=== PATIENT | female | born 1955 | race Caucasian/White ===

== ENCOUNTER 2024-01-11 07:00 | Outpatient (NON) | payer MEDICARE, SELFPAY | END 2024-01-11 07:01 | disposition home or self-care (01) | PROVIDERS: Visit Provider Surgery Plastic and Reconstructive Surgery | DX: D16.4 Benign neoplasm of bones of skull and face (principal) | CPT/HCPCS: 88305 ==

== ENCOUNTER 2025-07-05 00:23 | Day surgery (SDC) | payer MEDICARE, SELFPAY ==
--- NOTE | 2025-06-27 15:05 | PC.NURSE ---
[facility] has started construction of its new state of the art ER which will open Spring 2026. With this, we anticipate parking may be a challenge for some our surgical patients and families. Parking spaces are limited but are available for all Surgical, obstetrics, and ER patients sharing this lot. If you arrive and find you are having a hard time finding a parking space, please note that we understand the challenges, please drive around the hospital and park near Hospital Entrance 1. When you enter this entrance, you can ask a volunteer to direct or take you back to the surgical waiting area to check in. We appreciate everyone?s understanding of these expected challenges while we build for your future. Report to the Outpatient Waiting Room, entrance under the green pavilion located off [address], at time _6 AM on date _07/05/25 . Planned Procedure Time: __7:30 AM .? Time changes happen often and if your time is changed the preop area will call you the afternoon before. - You and your visitor will be asked to self-screen and do not enter if you have any COVID symptoms. Please call surgeon if you need to reschedule. - A mask is optional within the hospital at this time. Patients may have clear liquids (water, carbonated beverages, clear teas, apple juice) until 3 hours prior to surgery( 4:30 AM) with a maximum of 20 ounces. - No food from midnight until time of surgery and no smoking, or chewing tobacco (or any form of nicotine). No chewing gum, candy or mints. - Take only the following medications with a SIP of water on the morning of surgery: NONE DO NOT STOP ANY OF YOUR OTHER PRESCRIPTION MEDICATIONS PRIOR TO SURGERY EXCEPT THE FOLLOWING Hold all vitamins and supplements for 3 days per anesthesiologist.LAST DOSE 07/01/25 Medications to discontinue per physician ____ASPIRIN HOLD 7 DAYS PRE OP PER DR PAYTON Date to take last dose_06/27/25 Please no make-up, nail czech, hairspray, perfume, deodorant, or body powder the day of surgery.? No jewelry (including any body piercings) or valuables the day of surgery, leave them at home.? Please take a shower or bath the night before, or the morning of, surgery with an antibacterial soap.? Wear comfortable, loose fitting clothing.? Children are encouraged to wear pajamas. - Jewelry must be removed prior to entering the operating room.? Rings and piercings that are not removed may be cut off. - The hospital will not accept responsibility for valuables.? - Please leave all valuables, including medications, at home the day of surgery. If you are going home after surgery, a licensed tour driver must drive you home.? - NO public transportation without another adult if you receive anesthesia. - We recommend that an adult stay with you for 24 hours following discharge. - We also recommend that you do not drive, make important decision, drink alcoholic beverages, or take any drugs that were not prescribed by your health care provider for at least 24 hours after your discharge time. For Pediatric surgeries, we recommend two adults accompany the child home. Follow any additional instructions given to you from your surgeon. Telephone instructions given to __PATIENT and asked if any additional questions and then verbalized understanding. Patient advised to call surgeon office or pre surgery nurse liaison [phone] if any additional questions.
[2025-06-27 15:21] VITALS: BMI 30.9
--- NOTE | 2025-06-30 04:41 | PM.IMHP ---
H&P: HPI History of Present Illness Date/Time: 06/30/25 04:41 Chief Complaint: surgery Narrative: ISD Review of Systems Review of Systems: All systems reviewed & are unremarkable except as noted in HPI and below PMFSH Past Medical History Medical History Overweight with body mass index (BMI) of 29 to 29.9 in adult High cholesterol GERD (gastroesophageal reflux disease) Hypertension PAD (peripheral artery disease) Surgical History Surgical History History of ovarian cystectomy History of cholecystectomy History of hip replacement History of carpal tunnel release of both wrists History of tonsillectomy and adenoidectomy Family History Family History Father Diabetes mellitus Mother Hypertension High cholesterol Social History Social History Smoking packs per day: 1 Smoking cigarettes per day: 20.0 Years smoked: 15 Smoking pack-years: 15.00 Smoking status: Former smoker Tobacco type: cigarettes Smoking end date: 09/05/94 Alcohol intake: never Substance use: never Living arrangements: with family Spiritual care concerns: No Meds Home Medications and Allergies Home Medications ?Medication ?Instructions ?Recorded ?Confirmed ?Type aspirin 81 mg tablet,delayed 81 mg PO DAILY 01/05/21 06/27/25 History release (Adult Aspirin Regimen) calcium carbonate (Tums) 200 mg PO BID 01/05/21 06/27/25 History cetirizine 10 mg capsule (All Day 10 mg PO DAILY PRN allergy symptoms 01/05/21 06/27/25 History Allergy (cetirizine)) cholecalciferol (vitamin D3) 10 10 mcg PO DAILY 01/05/21 06/27/25 History mcg (400 unit) capsule coenzyme Q10 100 mg capsule (Co 100 mg PO DAILY 01/05/21 06/27/25 History Q-10) fluticasone propionate 50 1 spray intranasal DAILY 01/05/21 06/27/25 History mcg/actuation nasal spray,suspension (Allergy Relief (fluticasone)) lansoprazole 30 mg capsule,delayed 30 mg PO DAILY 01/05/21 06/27/25 History release lorazepam 0.5 mg tablet 0.5 mg PO DAILY 01/05/21 06/27/25 History magnesium 250 mg tablet 250 mg PO DAILY 01/05/21 06/27/25 History metoprolol succinate 50 mg 50 mg PO HS 01/05/21 06/27/25 History tablet,extended release 24 hr multivitamin 1 tablet PO DAILY 01/05/21 06/27/25 History polyethylene glycol 3350 17 17 g PO PRN PRN constipation 01/05/21 06/27/25 History gram/dose oral powder (Miralax) rosuvastatin 10 mg tablet 10 mg PO DAILY 01/05/21 06/27/25 History alendronate 70 mg tablet 70 mg PO WEEKLY 06/27/25 06/27/25 History montelukast 10 mg tablet 10 mg PO DAILY 06/27/25 06/27/25 History Allergies Allergy/AdvReac Type Severity Reaction Status Date / Time Sulfa (Sulfonamide Allergy Hives Verified 06/27/25 15:03 Antibiotics) tramadol Allergy Dizziness Verified 06/27/25 15:03 Exam Narrative: fixed urethra Assessment and Plan Assessment and plan (1) Intrinsic sphincter deficiency (ISD): Code(s): N36.42 - Intrinsic sphincter deficiency (ISD) Status: Acute Assessment and Plan: cysto/bulking agent
--- OUTSIDE RECORDS SUMMARY | 2025-07-05 00:27 | XMS_ITS | Clinical Summary ---
Author Organization [facility] Address [facility] [place] [address] Care Team Providers Care Meteorology Instructor Name Role Phone Unavailable Primary Care Provider Unavailabl e Social History Tobacco Use Types Packs/Day Years Used Date Smoking Tobacco: Never Assessed Comments Unknown Sex and Gender Information Value Date Recorded Sex Assigned at Not on file Legal Sex Female 5:47 PM CDT Gender Identity Not on file Sexual Orientation Not on file Plan of Treatment Health Maintenance Due Date Last Done Comments Colorectal Cancer Screening Colonoscopy (10 Years) 1957 Hepatitis C 1975 DTaP, Tdap and Td Vaccines ( 1 - Tdap) 1976 Mammogram Screening 1997 Pneumococcal Vaccine: 50+ Ye ars (1 of 1 - PCV) 2007 Zoster Vaccines (1 of 2) 2007 Dexa Scan (General) 2022 COVID-19 Vaccine ( - 2024-2 6 season) 2025 Influenza Adult (#1) 2025 RSV Immunization or 60+ Years (1 - 1-dose 75+ series) 2032 Hepatitis A Vaccines Aged Out No long er eligible based on patient's age to complete this topic Meningococcal B Vaccine Aged Out No l onger eligible based on patient's age to complete this topic Meningococcal Vaccine Aged Out No ceferino dipak eligible based on patient's age to complete this topic RSV Immunizations Under 20 Months Aged Out No longer eligible based on patient's age to complete this topic
--- OUTSIDE RECORDS SUMMARY | 2025-07-05 00:27 | XMS_ITS | Clinical Summary ---
Author Organization [facility] Address [address] [facility] [place] [address] Phone Care Team Providers Care Associate Financial Analyst Name Role Phone Chuy Veras MD Primary Care Provider [phone] Allergies Active Allergy Reactions Criticality Noted Date Comments Codeine Sulfate Hives,Rash Medications Azelastine HCl (ASTEPRO) 0.15 % NA SOLN 2 Puffs by Nasal route 2 times daily. Each nostril Active lansoprazole 30 MG PO CAP-DEL-REL Take by mouth. Active Cholecalciferol ([employer] VIT D 5000 HIGH-POTENCY) 5000 UNIT PO CAPS Take by mouth daily. Active rosuvastatin (CRESTOR) 5 MG PO TABS Take by mouth. Active fexofenadine 180 MG PO TABS Take by mouth. Active LORazepam 0.5 MG PO TABS Take by mouth. Active FLUTICASONE PROPIONATE, NASAL, NA 16 g by Nasal route. Active Aspirin 81 MG PO TABS Take by mouth. Active metoprolol Succinate (TOPROL XL) 50 MG PO TAB-SR-24HR Take by mouth. 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 Obstructive sleep apnea Social History Tobacco Use Types Packs/Day Years Used Date Smoking Tobacco: Former Cigarettes 1 15 Alcohol Use Standard Drinks/Week Comments Yes 0 (1 standard drink = 0.6 oz pur e alcohol) rare Comments No Sex and Gender Information Value Date Recorded Sex Assigned at Not on file Legal Sex Female 9:01 PM CDT Gender Identity Not on file Sexual Orientation Not on file Occupation Industry Job Start Date Job End Date teacher Not on file Not on file Not on file Last Filed Vital Signs Vital Sign Reading Time Taken Comments Blood Pressure 126/78 09/20/2016 1:27 PM ENERGY ADVISOR Pulse 68 09/20/2016 1:27 PM ENERGY ADVISOR Temperature - - Respiratory Rate 16 09/20/2016 1:27 PM ENERGY ADVISOR Oxygen Saturation - - Inhaled Oxygen Concentration - - Weight 71.2 kg (157 lb) 09/20/2016 1:27 PM ENERGY ADVISOR Height 160 cm (5' 3) 09/20/2016 1:27 PM ENERGY ADVISOR Body Mass Index 27.81 09/20/2016 1:27 PM ENERGY ADVISOR Plan of Treatment Health Maintenance Due Date Last Done Comments Hepatitis C Virus (HCV) Screening 1955 TdaP Immunization 1957 Cologuard 2002 Colonoscopy 2002 Colorectal Cancer Screening 2002 Immunochemical Fecal Occult Blood 2002 Pneumococcal Immunization (50+ years) (1 of 1 - PCV) 2007 Zoster Immunization (1 of 2) 2007 Influenza Immunization (#1) 05/06/202507/06, 07/17/2017, 07/22/2016, Additional history exists SARS-COV-2 Immunization (2024- season) 2025 08/17/2021, 11/11/2020, 10/14/2020 Respiratory Syncytial Virus (RSV) Immunization (Adult) (1 - 1-dose 75+ series) 2032 DEXA Bone Density Discontinued 04/05/2016 Mammogram Discontinued 06/15/2016 Hepatitis B Immunization Aged Out No longer eligible based on patient's age to complete this topic Human Papillomavirus (HPV) Immunization Aged Out No longer eligible based on patient's age to complete this topic Meningococcal Immunization (ACWY) Aged Out No longer eligible based on patient's age to complete this topic Rotavirus Immunization Aged Out No lo nger eligible based on patient's age to complete this topic Procedures Procedure Name Priority Date/Time Associated Diagnosis Comments [facility] SCREENING BILATERAL DIGITAL W CAD Routine 06/15/2016 3:33 PM CDT Encounter for mammogram to establish baseline mammogram ALEXANDRA BONE DENSITOMETRY AXIAL SKELETON Routine 04/05/2016 1:45 PM CDT Other specified disorders of bone density and structure, unspecified site from Last 3 Months or Most Recently Relevant to Health Maintenance Results * [facility] SCREENING BILATERAL DIGITAL W CAD (06/15/2016 3:33 PM CDT) Anatomical Region Laterality Modality breast Bilateral Mammography 06/15/2016 3:10 PM CDT Narrative 06/16/2016 7:09 AM CDT - [facility] SCREENING BILATERAL DIGITAL W CAD BILATERAL DIGITAL SCREENING MAMMOGRAM WITH CAD WITH MEDIOLATERAL OBLIQUE CRANIOCAUDAL: 06/15/2016 The study was acquired using digital technology and interpreted from soft copy. Current study was also evaluated with ICAD version 7.2. CLINICAL: Routine screening. Patient has no complaints. No personal history of cancer. No family history of breast cancer. COMPARISONS: Comparison is made to exams dated: 06/11/2015 and 05/07/2014 [facility]. BREAST TISSUE:The tissue of both breasts is predominantly fatty. FINDINGS: No significant masses, calcifications, or other findings are seen in either breast. There has been no significant interval change. IMPRESSION: BI-RAD 1 NEGATIVE There is no mammographic evidence of malignancy. A 1 year screening mammogram is recommended. The patient has been or will be contacted. The patient will be entered into a reminder system with a target due date of 1 year for her next screening exam. Electronically signed by: Jun scott/malachi:06/15/2016 18:55:51 Inspector And Sorter: Saloni Rose (R), [facility] letter sent: Normal Exam Reading location: [facility] BI-RADS: 1 Negative Procedure Note Jun Mcmullen MD - 06/16/2016 - [facility] SCREENING BILATERAL DIGITAL W CAD BILATERAL DIGITAL SCREENING MAMMOGRAM WITH CAD WITH MEDIOLATERAL OBLIQUE CRANIOCAUDAL: 06/15/2016 The study was acquired using digital technology and interpreted from soft copy. Current study was also evaluated with ICAD version 7.2. CLINICAL: Routine screening. Patient has no complaints. No personal history of cancer. No family history of breast cancer. COMPARISONS: Comparison is made to exams dated: 06/11/2015 and 05/07/2014 [facility]. BREAST TISSUE:The tissue of both breasts is predominantly fatty. FINDINGS: No significant masses, calcifications, or other findings are seen in either breast. There has been no significant interval change. IMPRESSION: BI-RAD 1 NEGATIVE There is no mammographic evidence of malignancy. A 1 year screening mammogram is recommended. The patient has been or will be contacted. The patient will be entered into a reminder system with a target due date of 1 year for her next screening exam. Electronically signed by: Jun scott/malachi:06/15/2016 18:55:51 Inspector And Sorter: Saloni Rose (Tabatha), [facility] letter sent: Normal Exam Reading location: [facility] BI-RADS: 1 Negative Zahira Hercules APRN, [facility] IM MAMMO ORDERABLES Fin al Result * [facility] BONE DENSITOMETRY AXIAL SKELETON (04/05/2016 1:45 PM CDT) Anatomical Region Laterality Modality BODY N/A Other 04/05/2016 2:06 PM CDT Impressions 04/05/2016 2:09 PM CDT IMPRESSION: Low bone mass Additional Clinical Information: Bone mineral density: Normal (T-score above or = -1.0) Low bone mass (T-score between -1.0 and -2.5) replaces the previously used term osteopenia Osteoporosis (T-score = or below -2.5) Medical evaluation for secondary causes of low bone mineral density may be appropriate. FRAX is a World Health Organization validated fracture risk assessment tool that calculates a person's 10 year probability of a major osteoporosis related fracture and hip fracture. According to the National Osteoporosis Foundation guidelines, postmenopausal women and men age 50 or older with low bone mass and a 10 year probability of a major osteoporosis related fracture = or greater than 20% or a 10 year probability of a hip fracture = or greater than 3% should be considered for treatment. For further information, including treatment recommendations, please refer to the 2013 ISCD Official Positions (http://www.iscd.org) and the NOF's Clinician's Guide to Prevention and Treatment of Osteoporosis (http://www.nof.org/professionals/clinical-guidelines) Narrative 04/05/2016 2:09 PM CDT EXAMINATION: DXA Bone Density HISTORY: 60 year old postmenopausal female with given history of postmenopausal. Current Height: 63 inches Maximum Height: 63 inches Weight: 167 pounds RISK FACTORS: Parental hip fracture, proton pump inhibitor usage greater than 6 months COMPARISON(S): None LIGHT BULB ASSEMBLER/MODEL: Superpedestrian (S/N [id number]) FINDINGS: AP lumbar spine L1-L4 Total BMD is 1.06 g/rv4V-pryvi is -1.1 Left Hip Total BMD is 0.84 g/ec4Y-hdlfo is -1.3 Neck BMD is 0.79 g/tn6U-giinh is -1.8 Fracture risk assessment (FRAX): 10 year risk for a major osteoporotic fracture is 16.3 % 10 year risk for a hip fracture is 0.9 % The FRAX tool has not been validated in patients currently or previously treated with pharmacotherapy for osteoporosis. In such patients, clinical judgement must be exercised in interpreting FRAX scores as the fracture risk may be overestimated. THIS IS AN ELECTRONICALLY VERIFIED REPORT 04/05/2016 2:06 PM: Norm Smith M.D. Radiologist AR:dayo SHAWN Procedure Note Hao Silveira MD - 04/05/2016 EXAMINATION: DXA Bone Density HISTORY: 60 year old postmenopausal female with given history of postmenopausal. Current Height: 63 inches Maximum Height: 63 inches Weight: 167 pounds RISK FACTORS: Parental hip fracture, proton pump inhibitor usage greater than 6 months COMPARISON(S): None LIGHT BULB ASSEMBLER/MODEL: Superpedestrian (S/N [id number]) FINDINGS: AP lumbar spine L1-L4 Total BMD is 1.06 g/yr6U-xjjmu is -1.1 Left Hip Total BMD is 0.84 g/by4C-dkehw is -1.3 Neck BMD is 0.79 g/vb0X-cbqnt is -1.8 Fracture risk assessment (FRAX): 10 year risk for a major osteoporotic fracture is 16.3 % 10 year risk for a hip fracture is 0.9 % The FRAX tool has not been validated in patients currently or previously treated with pharmacotherapy for osteoporosis. In such patients, clinical judgement must be exercised in interpreting FRAX scores as the fracture risk may be overestimated. THIS IS AN ELECTRONICALLY VERIFIED REPORT 04/05/2016 2:06 PM: Hao Silveira M.D. Hao Silveira M.D. Radiologist AR:dayo SHAWN IMPRESSION: Low bone mass Additional Clinical Information: Bone mineral density: Normal (T-score above or = -1.0) Low bone mass (T-score between -1.0 and -2.5) replaces the previously used term osteopenia Osteoporosis (T-score = or below -2.5) Medical evaluation for secondary causes of low bone mineral density may be appropriate. FRAX is a World Health Organization validated fracture risk assessment tool that calculates a person's 10 year probability of a major osteoporosis related fracture and hip fracture. According to the National Osteoporosis Foundation guidelines, postmenopausal women and men age 50 or older with low bone mass and a 10 year probability of a major osteoporosis related fracture = or greater than 20% or a 10 year probability of a hip fracture = or greater than 3% should be considered for treatment. For further information, including treatment recommendations, please refer to the 2013 ISCD Official Positions (http://www.iscd.org) and the NOF's Clinician's Guide to Prevention and Treatment of Osteoporosis (http://www.nof.org/professionals/clinical-guidelines) us Zahira Hercules APRN, [facility] IMG DEXA ORDERABLES Irish l Result from Last 3 Months or Most Recently Relevant to Health Maintenance Insurance [facility] Care Teams Associate Financial Analyst Relationship Specialty Start Date End Date Chuy Veras MD [address] [place] [id number] PCP - General Family Medicine 02/15/19
--- OUTSIDE RECORDS SUMMARY | 2025-07-05 00:27 | XMS_ITS | Clinical Summary ---
Author Organization [facility] Address [address] [place] [address] Phone Care Team Providers Care Supervisor Mending Name Role Phone Chuy Veras MD Primary Care Provider [phone] Allergies Active Allergy Reactions Criticality Noted Date Comments Sulfa (Sulfonamide Antibiotics) Hives High 0812/2008 Tramadol Dizziness Low 02/03/2016 Medications lansoprazole (PREVACID) 30 mg Capsule, Delayed Release(E.C.) Take 30 mg by mouth daily. Active magnesium oxide 500 mg Tablet Take by mouth. Active calcium as carbonate (TUMS) 500 mg (200 mg elemental) Tablet, Chewable 500 mg. 09/01/2017 Active LORazepam (ATIVAN) 0.5 mg tablet 0.5 mg late in the day. 12/26/2019 Active multivitamin (DAILY-DARIN) tablet Take 1 Tablet by mouth daily. Active metoprolol succinate (TOPROL XL) 25 mg Extended Release 24 hour tablet Take 50 mg by mouth daily. Active coenzyme Q10 100 mg Capsule Take 100 mg by mouth daily. Active docusate sodium (COLACE) 100 mg capsule Take 100 mg by mouth 2 times daily. Active aspirin (ECOTRIN EC) 81 mg Tablet, Delayed Release (E.C.) Take 81 mg by mouth daily. Active rosuvastatin (CRESTOR) 10 mg tablet Take 10 mg by mouth daily. Active cholecalciferol , vitamin D3, 5,000 unit Take 800 Units by mouth daily. Active polyethylene glycol 3350 (MIRALAX) 17 gram/dose Powder Take 17 Grams by mouth daily. Dissolve in 8 ounces of fluid and drink entire liquid Active montelukast (SINGULAIR) 10 mg tablet Take 10 mg by mouth daily. Active hyoscyamine 0.[address] 1 Tablet (0.125 mg) under tongue every 4 hours as needed for Spasm. 60 Tablet 3 12/28/2024 Active Active Problems Problem Noted Date Diagnosed Date Biliary colic 07/29/2020 Encounters Date Type Department Care Team Description 07/03/2025 External Device Data [facility] ABSTRACTION Provider, Abstract 06/26/2025 External Device Data [facility] ABSTRACTION Provider, Abstract 06/25/2025 External Device Data [facility] ABSTRACTION Provider, Abstract 05/21/2025 External Device Data [facility] ABSTRACTION Provider, Abstract 05/14/2025 External Device Data [facility] ABSTRACTION Provider, Abstract 04/10/2025 External Device Data [facility] ABSTRACTION Provider, Abstract 04/09/2025 External Device Data [facility] ABSTRACTION Provider, Abstract 04/09/2025 External Device Data [facility] ABSTRACTION Provider, Abstract from Last 3 Months Family History Medical History Relation Name Comments Colon Cancer Neg Hx Social History Tobacco Use Types Packs/Day Years Used Date Smoking Tobacco: Former Cigarettes 1 18 1 978 - 1995 Smokeless Tobacco: Never Tobacco Cessation:Counseling Given: Not Answered Alcohol Use Standard Drinks/Week Comments Yes 0 (1 standard drink = 0.6 oz pur e alcohol) rarely Feeling Safe Answer Date Recorded Are you in a relationship wi th someone who hurts you emotionally and/or physically? No 06/12/2024 Comments No Sex and Gender Information Value Date Recorded Sex Assigned at Female 06/03/2024 3:19 PM CDT Legal Sex Female 9:31 AM CDT Gender Identity Female 06/03/2024 3:19 PM CDT Sexual Orientation Straight 06/03/2024 3: 19 PM CDT Last Filed Vital Signs Vital Sign Reading Time Taken Comments Blood Pressure 133/85 11/16/2024 10:00 AM CDT Pulse 78 11/16/2024 10:00 AM CDT Temperature 36.2 C (97.1 F) 06/12/2024 1:56 PM CDT Respiratory Rate 18 06/12/2024 2:20 PM CDT Oxygen Saturation 100% 06/12/2024 2:20 PM CDT Inhaled Oxygen Concentration - - Weight 76.2 kg (168 lb) 11/16/2024 10:00 AM CDT Height 157.5 cm (5' 2) 11/16/2024 10:00 AM CDT Body Mass Index 30.73 11/16/2024 10:00 AM CDT Plan of Treatment Health Maintenance Due Date Last Done Comments Pre-Diabetes and Diabetes Screening 1955 FIT-DNA Q 3 years 2002 FIT/FOBT Q 1 year 2002 Flex Sig/CT Colonography Q 5 years 2002 PNEUMOCOCCAL VACCINE 50+ YEA RS (1 of 1 - PCV) 2007 ZOSTER VACCINE (1 of 2) 2007 BREAST CANCER SCREENING 06/15/2017 06/15/2016, 06/15 OSTEOPOROSIS SCREENING 2022 04/05/2016, 2015 INFLUENZA VACCINE (#1) 2025 , 07/20/2018, 07/18/2017, Additional history exists COLORECTAL SCREENING 06/12/2027 06/12/2024, 06/12/2024, 07/02/2020, Additional history exists Colorectal Cancer Screening 06/12/2027 DTAP/TDAP/TD VACCINES (2 - T d or Tdap) 12/30/2029 12/31/2019 RSV VACCINE (60+ or ) (1 - 1-dose 75+ series) 2032 Medical Devices Implanted Type Area Computational Theory Scientist Device Identifier Shelf Expiration Date Model / Serial / Lot Endo Clip Ii 10mm [id number] - [id number] Implanted:Qty: 1 on 07/29/2020 by Mario Alba DO at [facility] Clip N/A: Abdomen [employer] - COVIDIEN [id number] 06/04/2025 [id number] / / [id number] Hip Description:left total hip a rthroplasty Procedures Procedure Name Priority Date/Time Associated Diagnosis Comments COLONOSCOPY REPORT 06/12/2024 1: 59 PM CDT from Last 3 Months or Most Recently Relevant to Health Maintenance Results * COLONOSCOPY REPORT (06/12/2024 1:59 PM CDT) Narrative Procedure Note Krista Lara MD - 06/12/2024 1:59 PM CDT [facility] Endoscopy Patient Name: Jeimy Leal Procedure Date: 06/12/2024 Date of : 1955 Attending MD: Krista Lara MD, Procedure: Colonoscopy Indications: Surveillance: Personal history of adenomatous polyps on last colonoscopy > 3 years ago Providers: Krista Lara MD Referring MD: Chuy Veras MD Medicines: Monitored Anesthesia Care Complications: No immediate complications. Procedure: Informed consent was obtained for the procedure, including moderate sedation after risks were discussed. Based on the pre-procedure assessment, including review of the patient's medical history, medications, allergies, and review of systems, the patient was deemed to be an appropriate candidate for sedation. A timeout was performed. Continuous ECG monitoring, pulse oximetry, blood pressure monitoring, and direct observation were performed. The Colonoscope was introduced through the anus and advanced to the cecum, identified by appendiceal orifice and ileocecal valve. The colonoscopy was performed without difficulty. The patient tolerated the procedure well. The quality of the bowel preparation was good. The ileocecal valve, appendiceal orifice, and rectum were photographed. Estimated Blood Loss: Estimated blood loss was minimal. Findings: Two sessile polyps were found in the ascending colon. The polyps were 2 to 3 mm in size. These polyps were removed with a jumbo cold forceps. Resection and retrieval were complete. Two sessile polyps were found in the descending colon and transverse colon. The polyps were 5 to 6 mm in size. These polyps were removed with a cold snare. Resection and retrieval were complete. Four sessile polyps were found in the descending colon and transverse colon. The polyps were 2 to 3 mm in size. These polyps were removed with a jumbo cold forceps. Resection and retrieval were complete. Non-bleeding external hemorrhoids were found during retroflexion. Impression: - Two 2 to 3 mm polyps in the ascending colon, removed with a jumbo cold forceps. Resected and retrieved. - Two 5 to 6 mm polyps in the descending colon and in the transverse colon, removed with a cold snare. Resected and retrieved. - Four 2 to 3 mm polyps in the descending colon and in the transverse colon, removed with a jumbo cold forceps. Resected and retrieved. - Non-bleeding external hemorrhoids. Recommendation: - Patient has a contact number available for emergencies. The signs and symptoms of potential delayed complications were discussed with the patient. Return to normal activities tomorrow. Written discharge instructions were provided to the patient. - Resume previous diet. - Continue present medications. - Await pathology results. - Repeat colonoscopy is recommended for surveillance. The colonoscopy date will be determined after pathology results from today's exam become available for review. - Return to referring physician as previously scheduled. Krista Lara MD 06/12/2024 1:59:29 PM This report has been signed electronically. Number of Addenda: [address]; [place] [address] Krista Lara MD GI PROCEDURE ORDERABLES Final Result from Last 3 Months or Most Recently Relevant to Health Maintenance Insurance MEDICARE PART A AND B [facility] RX [facility] Advance Directives For more information, please contact: [phone] * Full Code (Latest Code Status on File) Date Activated Date Inactivated Comments 06/12/2024 12:26 PM 06/12/2024 4:44 PM * Full Code Date Activated Date Inactivated Comments 07/29/2020 8:24 AM 07/29/2020 5:50 PM * Full Code Date Activated Date Inactivated Comments 07/02/2020 9:22 AM 07/02/2020 1:38 PM Care Teams Supervisor Mending Relationship Specialty Start Date End Date Chuy Veras MD [address] [place] [id number] PCP - General Family Practice 06/04/20
--- OUTSIDE RECORDS SUMMARY | 2025-07-05 00:27 | XMS_ITS | Encounter Summary ---
Author Organization [facility] Address [address] [place] [address] Care Team Providers Care Solar Installation Foreman Name Role Phone Chuy Veras MD Primary Care Provider Encounter Details Date Type Department Care Team (Late st Contact Info) Description 07/03/2025 External Device Data [facility] ABSTRACTION Provider, Abstract NO ADDRESS ON FILE Social History Tobacco Use Types Packs/Day Years Used Date Smoking Tobacco: Former Cigarettes 1 18 1 978 - 1995 Smokeless Tobacco: Never Alcohol Use Standard Drinks/Week Comments Yes 0 [...] Orientation Straight 06/03/2024 3: 19 PM CDT documented as of this encounter Plan of Treatment Not on file documented as of this encounter Visit Diagnoses Not on filedocumented in this encounter Care Teams Solar Installation Foreman Relationship Specialty Start Date End Date Chuy Veras MD [address] [place] [id number] PCP - General Family Practice 06/04/20 documented as of this encounter
--- OUTSIDE RECORDS SUMMARY | 2025-07-05 00:27 | XMS_ITS | Clinical Summary ---
Author Organization [facility] Address [address] [place] [address] Care Team Providers Care Career Services Assistant Name Role Phone Chuy Veras MD Primary Care Provider Allergies Active Allergy Reactions Criticality Noted Date Comments Codeine Sulfate Hives,Rash Medium Sulfa (Sulfonamide Antibiotics) Hives High Reaction: Hives, Sulfanilamide Hives Medium Tramadol Dizziness Low 02/03/2016 Tramadol-Acetaminophen Dizziness Low Medications psyllium (METAMUCIL SUGAR FREE) powder 0 0 11/20/19 15 Active LORazepam (ATIVAN) 0.5 mg tablet take 1 tablet (0.5MG) by ORAL route 2 times every day as needed 0 03/29/20 11 Active metoprolol XL (TOPROL XL) 50 mg 24 hr tablet take 1 tablet (50MG) by oral route every day 0 03/29/20 11 Active calcium citrate-vitamin D2 250 mg-2.5 mcg (100 unit) per tablet Take 1 tablet by mouth 2 (two) times a day Active multivitamin capsule Take 1 capsule by mouth daily Active magnesium gluconate (MAGONATE) 27.5 mg magne- sium (500 mg) tabletIndications: hypomagnesemia Take 1 tablet (500 mg total) by mouth 2 (two) times a day Active coenzyme Q10 100 mg capsule Take 1 capsule (100 mg total) by mouth daily Active famotidine (PEPCID) 20 mg tablet Take 1 tablet (20 mg total) by mouth 2 (two) times a day 10/26/19 23 Active montelukast (SINGULAIR) 10 mg tablet Take 1 tablet (10 mg total) by mouth nightly Active rosuvastatin (CRESTOR) 10 mg tablet Take 1 tablet (10 mg total) by mouth daily Active TURMERIC ROOT EXTRACT ORAL Take by mouth daily Chewable Active HYDROcodone-acetam inophen (NORCO) 5-325 mg per tabletIndications: Pain Take 1 tablet by mouth every 6 (six) hours as needed for pain for up to 5 doses 5 tablet 09/20/19 24 Active Additional Information Patient not taking.Reported on 06/04/2025 aspirin 81 mg enteric coated tablet Take 1 tablet (81 mg total) by mouth daily Active lansoprazole (PREVACID SOLUTAB) 30 mg disintegrating tablet Take 1 tablet (30 mg total) by mouth daily 02/22/20 24 Active Active Problems Problem Noted Date Diagnosed Date Chronic maxillary sinusitis 09/07/2023 Assessment & Plan (10/07/2023 1:27 PM PRE ALGEBRA TEACHER): May blow nose gently Nasal saline spray (Simply saline, Little Remedies, Irion, [place]) 2 second sprays or 2 squeezes into each nostril while looking down over the sink, do not need to sniff in. Followed by Flonase 2 sprays into each nostril while looking down over the sink, do not sniff in or blow nose after use for at least 30 minutes daily for at least one month Follow up as needed Assessment & Plan (09/29/2023 11:05 AM PRE ALGEBRA TEACHER): Avoid nose blowing Sinus Rinse twice daily Follow up in one week Finish oral antibiotics Assessment & Plan (09/07/2023 2:17 PM PRE ALGEBRA TEACHER): Endoscopic bilateral maxillary antrostomy with tissue removal Endoscopic left eileen bullosa removal Stealth image guidance Risks and complications include anesthesia, bleeding, infection, injury to surrounding structures including brain with csf leak, eyes with vision changes, nasal mucosa, atrophic rhinitis, benign versus malignant pathology, no guarantee that sense of smell will return, need for further surgery. 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 Assessment & Plan (09/29/2023 11:05 AM PRE ALGEBRA TEACHER): Avoid nose blowing Sinus Rinse twice daily Follow up in one week Finish oral antibiotics Assessment & Plan (09/07/2023 5:34 PM PRE ALGEBRA TEACHER): Endoscopic bilateral maxillary antrostomy with tissue removal Endoscopic left eileen bullosa removal Stealth image guidance Risks and complications include anesthesia, bleeding, infection, injury to surrounding structures including brain with csf leak, eyes with vision changes, nasal mucosa, atrophic rhinitis, benign versus malignant pathology, no guarantee that sense of smell will return, need for further surgery. Personal interpretation of the CT Sinus: bilateral fluid levels in the maxillary sinuses, OMC obstruction bilaterally, left moderate eileen bullosa Seasonal allergic rhinitis due to pollen 023 Assessment & Plan (08/12/2023 9:49 AM PRE ALGEBRA TEACHER): Nasal saline spray (Simply saline, Little Remedies, Irion, [place]) 2 second sprays or 2 squeezes into each nostril while looking down over the sink, do not need to sniff in 1-2 times per day Continue Humidifier Flonase 2 sprays into each nostril while looking down over the sink, do not sniff in or blow nose after use for at least [address] Sinus Aquaphor apply pea-size amount into each nostril with a cotton tipped applicator, being carefully just to tuck it into each nostril, then massage soft portion of the outer nose to massage the ointment around inside the nose. Blood allergy testing Atrial fibrillation 04/26/2023 Essential hypertension 04/26/2023 Claudication 04/26/2023 Primary osteoarthritis, right ankle and foot Surgical follow-up care 04/07/2012 Arthralgia of hip 02/20/2010 Encounters Date Type Department Care Team Description 06/04/2025 11:00 AM CDT Office Visit [facility] Orthopedics and Sports Medicine [address] [place], [place] [address], [place] [address] Nilton Guerra MD Left hip pain (Primary Dx); Hip flexor tendinitis, left 06/04/2025 7:48 AM CDT - 06/04/2025 11:59 PM CDT Hospital Encounter [facility] Medical [facility] Orthopedics and Sports Medicine [address] [place] [address] Discharge Disposition: Discharge to home or self care 04/16/2025 Telephone [facility] Orthopedics and Sports Medicine [address] [place] [address] [address] [place] [address] Nilton Guerra MD 2nd Opinion; Hip Pain from Last 3 Months Surgical History Surgery Date Site/Laterality Comments APPENDECTOMY Appendectomy CARPAL TUNNEL RELEASE 2010 Bilateral Carpal tunnel release HIP ARTHROPLASTY Left Hip replacement TONSILLECTOMY Tonsillectomy OTHER SURGICAL HISTORY right trigger thumb release OOPHORECTOMY left ovary removed OTHER SURGICAL HISTORY left thumb trigger finger release FLUORO GUIDED INJECTION ANKLE RIGHT 01/09/2021 Right FLUORO GUIDED INJECTION ANKLE RIGHT 12/22/2021 Right FLUORO GUIDED INJECTION ANKLE RIGHT 06/07/2022 Right FLUORO GUIDED INJECTION ANKLE RIGHT 12/06/2022 Right FLUORO GUIDED INJECTION ANKLE RIGHT 05/13/2023 Right CHOLECYSTECTOMY 09/05/2019 - 09/04/2020 CARDIAC CATHETERIZATION 09/05/2007 - 09/04/2008 no stent FLUORO GUIDED INJECTION ANKLE RIGHT 11/28/2023 Right Medical History Medical History Date Comments Hx Other Medical 1985 ovary removed l eft Hypertension Hypertension Hx Other Medical osteoarthritis Hx Other Medical hiatal hernia Hx Other Medical poor circulatio n Hx Other Medical high cholestero l Hx Other Medical gerd Allergic rhinitis Anxiety Arthritis GERD (gastroesophageal reflux disease) Hiatal hernia Hypercholesteremia Osteoarthritis Peripheral vascular disease Sleep apnea PONV (postoperative nausea and vomiting) Family History Medical History Relation Name Comments Diabetes Father Diabetes Other 1 Family history of Diabetes mellitus; Hypertension Other 2 Family history of Hypertension; Osteoporosis Other 3 Family history of Osteoporosis; Thyroid disease Other 4 Family histo ry of Thyroid disorder; Heart disease Other 5 Family history of heart problems; Lung disease Other 6 Family history of lung problems; Relation Name Status Comments Father Other 1 Other 2 Other 3 Other 4 Other 5 Other 6 Social History Tobacco Use Types Packs/Day Years Used Date Smoking Tobacco: Former Cigarettes Q uit: 1995 Smokeless Tobacco: Never Tobacco Cessation:Counseling Given: Not Answered Alcohol Use Standard Drinks/Week Comments Yes 0 (1 standard drink = 0.6 oz pur e alcohol) AUDIT-C Answer Date Recorded Frequency of Alcohol Consumption Not on file 09/08/2023 Q2: How many drinks containi ng alcohol do you have on a typical day when you are drinking? Patient does not drink Frequency of Binge Drinking Not on file 12/2023 PHQ-2 Answer Date Recorded PHQ-2 Total Score (If total score is 3 or more points, staff should administer the PHQ-9) 2 2024 PHQ-9 Answer Date Recorded PHQ-9 Total Score 3 2024 Personal Safety Answer Date Recorded Have you ever been in or are you currently in a harmful physical or emotional relationship or is someone making you feel afraid or unsafe? Denies 11/28/2023 Comments No Sex and Gender Information Value Date Recorded Sex Assigned at Not on file Legal Sex Female 1:02 AM PRE ALGEBRA TEACHER Gender Identity Female 07/21/2020 3:03 PM PRE ALGEBRA TEACHER Sexual Orientation Straight 07/21/2020 3: 03 PM PRE ALGEBRA TEACHER Obstetrics History Last Filed Vital Signs Vital Sign Reading Time Taken Comments Blood Pressure 111/76 06/04/2025 11:03 AM CDT Pulse 71 06/04/2025 11:03 AM CDT Temperature 36.6 C (97.9 F) 08/09/2024 7:24 AM PRE ALGEBRA TEACHER Respiratory Rate 18 08/09/2024 8:26 AM PRE ALGEBRA TEACHER Oxygen Saturation 99% 08/09/2024 7:40 AM PRE ALGEBRA TEACHER Inhaled Oxygen Concentration - - Weight 76.6 kg (168 lb 12.8 oz) 025 11:03 AM CDT Height 154.9 cm (5' 1) 06/04/2025 11:0 3 AM CDT Body Mass Index 31.89 06/04/2025 11:03 AM CDT Plan of Treatment Health Maintenance Due Date Last Done Comments Colon Cancer Screening-Colonoscopy 1955 Hepatitis C Screening 1955 DTaP/Tdap/Td Vaccine (1 - Tdap) 1968 Hepatitis B Screening 1975 Pneumococcal vaccine 65+ (1 of 1 - PCV) 2007 Zoster Vaccine (1 of 2) 2007 Breast Cancer Screening-Mammogram 06/15/2017 016 Osteoporosis Screening-Bone Density Scan 04/05/2018 04/05/2016, 04/05/2016 Well Visit 65+ 2022 Fall Risk Assessment 11/27/2024 11/28/2023 Influenza Vaccine (#1) 2025 8, 07/18/2017, 07/17/2017, Additional history exists Depression Screening 2025 2024, 07/13/20 24 Medical Devices Implanted Type Area Mattress Spring Encaser Device Identifier Shelf Expiration Date Model / Serial / Lot Hip Left: Hip Procedures Procedure Name Priority Date/Time Associated Diagnosis Comments XR HIP LEFT 2 OR 3 VIEWS Schedule Routine, Read Routine (OP Routine) 06/04/2025 11:00 AM CDT Left hip pain from Last 3 Months Results * XR Hip Left 2 or 3 Views (06/04/2025 11:00 AM CDT) Anatomical Region Laterality Modality Lower Extremities, Hip, Pelvis Left D igital Radiography Narrative 06/04/2025 11:25 AM CDT Left total hip arthroplasty without evidence of loosening or polyethylene wear. There are no abnormalities noted and implants appear unchanged in position from previous imaging. Nilton Guerra MD IMG XR PROCEDURES Final Result from Last 3 Months Insurance [email or web address] AETNA MEDICARE MEDICARE Care Teams Career Services Assistant Relationship Specialty Start Date End Date Chuy Veras MD PCP - General Family Medicine 03/13/18
[2025-07-05 06:06] VITALS: BMI 31.8
--- NOTE | 2025-07-05 06:56 | WPDANESEPPF ---
Anes - Initial Pre Proc Eval Procedure: Operation Date: 07/05/25 07:30 Proposed Procedures p Cystoscopy, Injection Bulking Agent - Colt Fairbanks MD Date/Time: 07/05/25 06:56 Surgeon: Colt Fairbanks MD Pre Op Diagnosis: ID Patient Data Age: 69 Gender: F Height: 1.55 m Weight: 76.6 kg Allergies Allergy/AdvReac Type Severity Reaction Status Date / Time Sulfa (Sulfonamide Allergy Hives Verified 07/05/25 06:03 Antibiotics) tramadol Allergy Dizziness Verified 07/05/25 06:03 Home Medications ?Medication ?Instructions ?Recorded ?Confirmed ?Type aspirin 81 mg tablet,delayed 81 mg PO DAILY 01/05/21 07/05/25 History release (Adult Aspirin Regimen) calcium carbonate (Tums) 200 mg PO BID 01/05/21 06/27/25 History cetirizine 10 mg capsule (All Day 10 mg PO DAILY PRN allergy symptoms 01/05/21 06/27/25 History Allergy (cetirizine)) cholecalciferol (vitamin D3) 10 10 mcg PO DAILY 01/05/21 06/27/25 History mcg (400 unit) capsule coenzyme Q10 100 mg capsule (Co 100 mg PO DAILY 01/05/21 06/27/25 History Q-10) fluticasone propionate 50 1 spray intranasal DAILY 01/05/21 06/27/25 History mcg/actuation nasal spray,suspension (Allergy Relief (fluticasone)) lansoprazole 30 mg capsule,delayed 30 mg PO DAILY 01/05/21 06/27/25 History release lorazepam 0.5 mg tablet 0.5 mg PO DAILY 01/05/21 06/27/25 History magnesium 250 mg tablet 250 mg PO DAILY 01/05/21 06/27/25 History metoprolol succinate 50 mg 50 mg PO HS 01/05/21 06/27/25 History tablet,extended release 24 hr multivitamin 1 tablet PO DAILY 01/05/21 06/27/25 History polyethylene glycol 3350 17 17 g PO PRN PRN constipation 01/05/21 06/27/25 History gram/dose oral powder (Miralax) rosuvastatin 10 mg tablet 10 mg PO DAILY 01/05/21 06/27/25 History alendronate 70 mg tablet 70 mg PO WEEKLY 06/27/25 06/27/25 History montelukast 10 mg tablet 10 mg PO DAILY 06/27/25 06/27/25 History Patient hx anesthesia problems: none Family hx anesthesia problems: none Results Review: All pre-operative results and documents have been reviewed as part of the pre-operative evaluation. [facility] Past Medical History Medical History Overweight with body mass index (BMI) of 29 to 29.9 in adult High cholesterol GERD (gastroesophageal reflux disease) Hypertension PAD (peripheral artery disease) Surgical History Surgical History History of ovarian cystectomy History of cholecystectomy History of hip replacement History of carpal tunnel release of both wrists History of tonsillectomy and adenoidectomy Family History Family History Father Diabetes mellitus Mother Hypertension High cholesterol Social History Social History Smoking packs per day: 1 Smoking cigarettes per day: 20.0 Years smoked: 15 Smoking pack-years: 15.00 Smoking status: Former smoker Tobacco type: cigarettes Smoking end date: 09/05/94 Alcohol intake: never Substance use: never Living arrangements: with family Spiritual care concerns: No Anes - Eval Final PreProcedure Day of Procedure 07/05/25 06:56 Patient weight: obese Heart: regular rate and rhythm Lungs: clear to auscultation Airway: Mallampati scale class II Neurological: alert and oriented Last oral intake: >/= 8 hours ASA classification: III Emergent: no Anesthetic plan: proceed Anesthesia type and monitoring: general GIVS and standard monitoring Results Review: All pre-operative results and documents have been reviewed as part of the pre-operative evaluation. Informed Consent: The patient's anesthetic plan and its attendant risks and benefits were discussed with the patient/family/POA. Questions were solicited and answers provided to the satisfaction of the patient/family/POA.
--- NOTE | 2025-07-05 07:17 | WPDHPUPDATE1 ---
History and Physical Update Update Date/Time: 07/05/25 07:17 History and Physical has been reviewed, including an updated exam of the patient. There are NO changes in the patient's condition. Risks, benefits, and alternatives have been discussed and questions answered. Patient agrees to proceed with procedure.
[2025-07-05] MEDS: ceFAZolin 2 GM in SODIUM CHLORIDE 0.9% IV 50 ML 100 ML IVPB (07:27)
[2025-07-05] MEDS: LIDOCAINE 2% GEL UROJET 10 ML PKG MUCOUS MEM (07:45)
[2025-07-05 07:52] VITALS: BP 98/54; PULSE 69; RESP 16; O2SAT 96
[2025-07-05] MEDS: LACTATED RINGERS 1,000 ML 30 ML IV CONT ×2 (07:52→08:51)
--- NOTE | 2025-07-05 07:55 | W.PM.PROC2 ---
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 She presents for bulking agent. Understands risks of bleeding, infection, lack of efficacy, need for repeat procedures, need for catheterization. She agrees to proceed Description of Procedure She was correctly identified. Informed consent obtained. From the operating room. She was given monitored anesthesia care. She was prepped and draped sterile fashion. Given appropriate preop antibiotics. Time-out performed. Cystoscopy revealed normal-appearing bladder without abnormalities. No tumors or stones. Urethra open consistent with intrinsic sphincter deficiency. I chose a spot mid urethra 2 cm distal bladder neck. I injected bulking agent circumferentially forming several pillows completely coapted urethra. I used a 1-3/4 syringe total. There was excellent bulking effect. Her bladder was left partially full. She was awakened transferred to PACU in stable condition. Estimated Blood Loss 0 Drains No Packing No Pathology None sent Complications No immediate complications Condition Stable Disposition PACU
[2025-07-05 08:15] VITALS: BP 114/77; PULSE 62; RESP 16; O2SAT 98
[2025-07-05 08:45] VITALS: BP 126/66; PULSE 62; RESP 16
[2025-07-05 09:15] VITALS: BP 119/71; PULSE 51; RESP 16
[2025-07-05 09:45] VITALS: BP 133/83; PULSE 61; RESP 16
== END 2025-07-05 09:56 | disposition home or self-care (01) ==
PROVIDERS: Visit Provider Urology
PROC: 3E0K8GC Introduction of Other Therapeutic Substance into Genitourinary Tract, Via Natural or Artificial Opening Endoscopic (ICD-10-PCS; CPT 51715; principal; 2025-07-05 07:30)
DX: N36.42 Intrinsic sphincter deficiency (ISD) (principal); I10 Essential (primary) hypertension; K21.9 Gastro-esophageal reflux disease without esophagitis; E78.00 Pure hypercholesterolemia, unspecified; I73.9 Peripheral vascular disease, unspecified; E66.9 Obesity, unspecified; Z68.31 Body mass index [BMI] 31.0-31.9, adult; Z79.82 Long term (current) use of aspirin; Z79.83 Long term (current) use of bisphosphonates; Z98.890 Other specified postprocedural states; Z90.49 Acquired absence of other specified parts of digestive tract; Z87.891 Personal history of nicotine dependence
CPT/HCPCS: 51715; 51702; 81001; 99283; J0690; J2704; J3010; J7120; L8606

== ENCOUNTER 2025-07-05 13:29 | Emergency (ER) | payer MEDICARE, SELFPAY ==
--- OUTSIDE RECORDS SUMMARY | 2025-07-05 13:31 | XMS_ITS | Encounter Summary ---
Author Organization [facility] Address [address] [place] [address] Care Team Providers Care General Warehouse Associate Name Role Phone Chuy Veras MD Primary Care Provider [phone] Encounter Details Date Type Department Care Team [...] on filedocumented in this encounter Care Teams General Warehouse Associate Relationship Specialty Start Date End Date Chuy Veras MD [address] [place] [phone] PCP - General Family Practice 06/04/20 documented as of this encounter
--- OUTSIDE RECORDS SUMMARY | 2025-07-05 13:31 | XMS_ITS | Clinical Summary ---
Author Organization [facility] Address [address] [place] [address] Care Team Providers Care Welder/Fitter Name Role Phone Chuy Veras MD Primary Care Provider [phone] Allergies Active Allergy Reactions Criticality Noted Date [...] 09/07/2023 Assessment & Plan (10/07/2023 1:27 PM ENVIRONMENTAL SERVICES TECH): May blow nose gently Nasal saline spray (Simply saline, Little Remedies, [place], [place]) 2 second sprays or 2 squeezes into [...] needed Assessment & Plan (09/29/2023 11:05 AM ENVIRONMENTAL SERVICES TECH): Avoid nose blowing Sinus Rinse twice daily Follow up in one week Finish oral antibiotics Assessment & Plan (09/07/2023 2:17 PM ENVIRONMENTAL SERVICES TECH): Endoscopic bilateral maxillary antrostomy with tissue removal [...] 09/07/2023 Assessment & Plan (09/29/2023 11:05 AM ENVIRONMENTAL SERVICES TECH): Avoid nose blowing Sinus Rinse twice daily Follow up in one week Finish oral antibiotics Assessment & Plan (09/07/2023 5:34 PM ENVIRONMENTAL SERVICES TECH): Endoscopic bilateral maxillary antrostomy with tissue removal [...] 023 Assessment & Plan (08/12/2023 9:49 AM ENVIRONMENTAL SERVICES TECH): Nasal saline spray (Simply saline, Little Remedies, [place], [place]) 2 second sprays or 2 squeezes into [...] Description 06/04/2025 11:00 AM CDT Office Visit [facility] [address] [place], [place] [address], [place] [address] Nilton Guerra MD Left hip pain (Primary Dx); Hip flexor tendinitis, left 06/04/2025 7:48 AM CDT - 06/04/2025 11:59 PM CDT Hospital Encounter [facility] [address] [facility] [address] [place] [address] Discharge Disposition: Discharge to home or self care 04/16/2025 Telephone [facility] [address] [place] [address] [address] [place] [address] Nilton Guerra MD 2nd Opinion; Hip Pain [...] on file Legal Sex Female 1:02 AM ENVIRONMENTAL SERVICES TECH Gender Identity Female 07/21/2020 3:03 PM ENVIRONMENTAL SERVICES TECH Sexual Orientation Straight 07/21/2020 3: 03 PM ENVIRONMENTAL SERVICES TECH Obstetrics History Last Filed Vital Signs Vital Sign Reading Time Taken Comments Blood Pressure 111/76 06/04/2025 11:03 AM CDT Pulse 71 06/04/2025 11:03 AM CDT Temperature 36.6 C (97.9 F) 08/09/2024 7:24 AM ENVIRONMENTAL SERVICES TECH Respiratory Rate 18 08/09/2024 8:26 AM ENVIRONMENTAL SERVICES TECH Oxygen Saturation 99% 08/09/2024 7:40 AM ENVIRONMENTAL SERVICES TECH Inhaled Oxygen Concentration - - Weight 76.6 [...] 07/13/20 24 Medical Devices Implanted Type Area Receiver Dispatcher Device Identifier Shelf Expiration Date Model / [...] Final Result from Last 3 Months Insurance [employer] [facility] [employer] MEDICARE MEDICARE Care Teams Welder/Fitter Relationship Specialty Start Date End Date Chuy Veras MD PCP - General Family Medicine 03/13/18
--- OUTSIDE RECORDS SUMMARY | 2025-07-05 13:31 | XMS_ITS | Clinical Summary ---
Author Organization [facility] Address [address] [place] [address] Phone Care Team Providers Care Certified Coatings Inspector Name Role Phone Chuy Veras MD Primary Care Provider [phone] Allergies Active Allergy Reactions Criticality Noted Date [...] External Device Data STL ABSTRACTION Provider, Abstract 07/03/2025 External Device Data STL ABSTRACTION Provider, [...] series) 2032 Medical Devices Implanted Type Area Nuclear Medicine Physician Device Identifier Shelf Expiration Date Model / Serial / Lot Endo Clip Ii 10mm [id number] - [id number] Implanted:Qty: 1 on 07/29/2020 by Mario Alba DO at [facility] Clip N/A: Abdomen [employer] - [employer] [id number] 06/04/2025 [id number] / / [id number] Hip Description:left total hip a rthroplasty Procedures Procedure Name Priority Date/Time Associated Diagnosis Comments COLONOSCOPY REPORT 06/12/2024 1: 59 PM CDT from Last 3 Months or Most Recently Relevant to Health Maintenance Results * COLONOSCOPY REPORT (06/12/2024 1:59 PM CDT) Narrative Procedure Note Krista Lara MD - 06/12/2024 1:59 PM CDT [facility] Endoscopy Patient Name: Jeimy Leal Procedure [...] Addenda: [address]; [place] [address] Krista Lara MD GI PROCEDURE ORDERABLES Final Result from Last 3 Months or Most Recently Relevant to Health Maintenance Insurance MEDICARE PART A AND B [facility] [employer] Advance Directives For more information, please contact: [phone] * Full Code (Latest Code Status on File) Date Activated Date Inactivated Comments 06/12/2024 12:26 PM 06/12/2024 4:44 PM * Full Code Date Activated Date Inactivated Comments 07/29/2020 8:24 AM 07/29/2020 5:50 PM * Full Code Date Activated Date Inactivated Comments 07/02/2020 9:22 AM 07/02/2020 1:38 PM Care Teams Certified Coatings Inspector Relationship Specialty Start Date End Date Chuy Veras MD [address] [place] [phone] PCP - General Family Practice 06/04/20
--- OUTSIDE RECORDS SUMMARY | 2025-07-05 13:31 | XMS_ITS | Encounter Summary ---
Author Organization [facility] Address [address] [place] [address] Care Team Providers Care Machine Clipper Name Role Phone Chuy Veras MD Primary Care Provider [phone] Encounter Details Date Type Department Care Team [...] on filedocumented in this encounter Care Teams Machine Clipper Relationship Specialty Start Date End Date Chuy Veras MD [address] [place] [phone] PCP - General Family Practice 06/04/20 documented as of this encounter
--- OUTSIDE RECORDS SUMMARY | 2025-07-05 13:31 | XMS_ITS | Clinical Summary ---
Author Organization [facility] Address [facility] [place] [address] Care Team Providers Care Animal Doctor Name Role Phone Unavailable Primary Care Provider [...]
--- OUTSIDE RECORDS SUMMARY | 2025-07-05 13:31 | XMS_ITS | Clinical Summary ---
Author Organization [facility] Address [address] [facility] [address] [place] [address] Phone Care Team Providers Care Market Development Manager Name Role Phone Chuy Veras MD Primary Care Provider [phone] Allergies Active Allergy Reactions Criticality Noted Date [...] Comments Blood Pressure 126/78 09/20/2016 1:27 PM GENERATING STATION MECHANIC Pulse 68 09/20/2016 1:27 PM GENERATING STATION MECHANIC Temperature - - Respiratory Rate 16 09/20/2016 1:27 PM GENERATING STATION MECHANIC Oxygen Saturation - - Inhaled Oxygen Concentration - - Weight 71.2 kg (157 lb) 09/20/2016 1:27 PM GENERATING STATION MECHANIC Height 160 cm (5' 3) 09/20/2016 1:27 PM GENERATING STATION MECHANIC Body Mass Index 27.81 09/20/2016 1:27 PM GENERATING STATION MECHANIC Plan of Treatment Health Maintenance Due Date [...] Procedure Name Priority Date/Time Associated Diagnosis Comments [facility] SCREENING BILATERAL DIGITAL W CAD Routine 06/15/2016 [...] made to exams dated: 06/11/2015 and 05/07/2014 [facility]. BREAST TISSUE:The tissue of both breasts is [...] exam. Electronically signed by: Jun scott/malachi:06/15/2016 18:55:51 Armoured Car Escort: Saloni Rose (R), [facility] letter sent: Normal Exam Reading location: [facility] BI-RADS: 1 Negative Procedure Note Jun Mcmullen MD - 06/16/2016 - [facility] SCREENING BILATERAL DIGITAL W CAD BILATERAL DIGITAL [...] made to exams dated: 06/11/2015 and 05/07/2014 [facility]. BREAST TISSUE:The tissue of both breasts is [...] exam. Electronically signed by: Jun scott/malachi:06/15/2016 18:55:51 Armoured Car Escort: Saloni Rose (Tabatha), [facility] letter sent: Normal Exam Reading location: [facility] BI-RADS: 1 Negative Zahira Hercules APRN, [facility] MAMMO ORDERABLES Fin al Result * [facility] BONE DENSITOMETRY AXIAL SKELETON (04/05/2016 1:45 PM [...] usage greater than 6 months COMPARISON(S): None FOOD PREP WORKER/MODEL: Kiosked (S/N [id number]) FINDINGS: AP lumbar spine L1-L4 Total BMD is 1.06 g/ca5K-rnkoy is -1.1 Left Hip Total BMD is 0.84 g/bx6M-imaqc is -1.3 Neck BMD is 0.79 g/gk8Y-mrrmh is -1.8 Fracture risk assessment (FRAX): 10 [...] usage greater than 6 months COMPARISON(S): None FOOD PREP WORKER/MODEL: Kiosked (S/N [id number]) FINDINGS: AP lumbar spine L1-L4 Total BMD is 1.06 g/cm7F-xoxbg is -1.1 Left Hip Total BMD is 0.84 g/um0R-hfzts is -1.3 Neck BMD is 0.79 g/ru5A-rszjf is -1.8 Fracture risk assessment (FRAX): 10 [...] Most Recently Relevant to Health Maintenance Insurance [facility] Care Teams Market Development Manager Relationship Specialty Start Date End Date Chuy Veras MD [address] [place] [id number] PCP - General Family Medicine 02/15/19
[2025-07-05 13:38] VITALS: BP 176/82; PULSE 78; RESP 20; TEMP 36.6; O2SAT 100
--- NOTE | 2025-07-05 13:43 | PC.NURSE ---
Patient stated that she had BULKAMID procedure completed this AM for leaking bladder and now has urinary retention.
--- NOTE | 2025-07-05 14:04 | ED.GENADULT ---
HPI - General Adult General Chief complaint: Recheck/Abnormal Lab/Rx Stated complaint: Urgency, Procedure Today Time Seen by Provider: 07/05/25 13:40 Source: patient and family Mode of arrival: ambulatory Limitations: no limitations History of Present Illness HPI narrative: This is a 69-year-old female with history of intrinsic sphincter deficiency now status post bulking agent placement by Dr. Fairbanks earlier today who presents to the ED for urinary retention. Patient states that she got home from her surgery today about 3 hours ago and was unable to urinate. She was beginning to have lower abdominal fullness and urinary urgency. She called her surgeon who advised her to come to the ED for further evaluation. Patient has no other complaints at this time. Related Data Home Medications ?Medication ?Instructions ?Recorded ?Confirmed ?Last Taken ?Type aspirin 81 mg tablet,delayed 81 mg PO DAILY 01/05/21 07/05/25 06/28/25 History release (Adult Aspirin Regimen) calcium carbonate (Tums) 200 mg PO BID 01/05/21 06/27/25 Unknown History cetirizine 10 mg capsule (All Day 10 mg PO DAILY PRN allergy symptoms 01/05/21 06/27/25 Unknown History Allergy (cetirizine)) cholecalciferol (vitamin D3) 10 10 mcg PO DAILY 01/05/21 06/27/25 Unknown History mcg (400 unit) capsule coenzyme Q10 100 mg capsule (Co 100 mg PO DAILY 01/05/21 06/27/25 Unknown History Q-10) fluticasone propionate 50 1 spray intranasal DAILY 01/05/21 06/27/25 Unknown History mcg/actuation nasal spray,suspension (Allergy Relief (fluticasone)) lansoprazole 30 mg capsule,delayed 30 mg PO DAILY 01/05/21 06/27/25 Unknown History release lorazepam 0.5 mg tablet 0.5 mg PO DAILY 01/05/21 06/27/25 Unknown History magnesium 250 mg tablet 250 mg PO DAILY 01/05/21 06/27/25 Unknown History metoprolol succinate 50 mg 50 mg PO HS 01/05/21 06/27/25 Unknown History tablet,extended release 24 hr multivitamin 1 tablet PO DAILY 01/05/21 06/27/25 Unknown History polyethylene glycol 3350 17 17 g PO PRN PRN constipation 01/05/21 06/27/25 Unknown History gram/dose oral powder (Miralax) rosuvastatin 10 mg tablet 10 mg PO DAILY 01/05/21 06/27/25 Unknown History alendronate 70 mg tablet 70 mg PO WEEKLY 06/27/25 06/27/25 Unknown History montelukast 10 mg tablet 10 mg PO DAILY 06/27/25 06/27/25 Unknown History Allergies Allergy/AdvReac Type Severity Reaction Status Date / Time Sulfa (Sulfonamide Allergy Hives Verified 07/05/25 06:03 Antibiotics) tramadol Allergy Dizziness Verified 07/05/25 06:03 Review of Systems Review of Systems: Gen.: Denies fevers or chills Eyes: Denies eye pain or visual change ENT: Denies congestion Respiratory: Denies shortness of breath or cough CV: Denies chest pain or palpitations GI: Denies abdominal pain nausea, emesis or diarrhea as per HPI Musculoskeletal: Denies back pain or muscle pain Neuro: Denies numbness, tingling, weakness or focal weakness Skin: Denies rash Except as documented, all other systems reviewed and negative [facility] Past Medical History Medical History Overweight with body mass index (BMI) of 29 to 29.9 in adult High cholesterol GERD (gastroesophageal reflux disease) Hypertension PAD (peripheral artery disease) Surgical History Surgical History History of ovarian cystectomy History of cholecystectomy History of hip replacement History of carpal tunnel release of both wrists History of tonsillectomy and adenoidectomy Family History Family History Father Diabetes mellitus Mother Hypertension High cholesterol Social History Social History Smoking packs per day: 1 Smoking cigarettes per day: 20.0 Years smoked: 15 Smoking pack-years: 15.00 Smoking status: Former smoker Tobacco type: cigarettes Smoking end date: 09/05/94 Alcohol intake: never Substance use: never Living arrangements: with family Spiritual care concerns: No Exam Narrative: APPEARANCE: No acute distress, nontoxic, resting in bed HEENT: Normocephalic, atraumatic, OMM RESPIRATORY: No respiratory distress CARDIOVASCULAR: Appears well perfused ABDOMINAL: Lower abdominal fullness and tenderness to palpation MUSCULOSKELETAl: Moves all extremities. No obvious deformities NEURO: Awake and alert. SKIN:: Warm, dry. No rashes lesions or abrasions PSYCHIATRIC: Normal affect/mood, Course Vital Signs Vital signs: Vital Signs Temperature 97.8 F 07/05/25 13:38 Pulse Rate 78 07/05/25 13:38 Respiratory Rate 20 07/05/25 13:38 Blood Pressure 176/82 H 07/05/25 13:38 Pulse Oximetry 100 07/05/25 13:38 Oxygen Delivery Room Air 07/05/25 13:38 Temperature 97.8 F 07/05/25 13:38 Pulse Rate 78 07/05/25 13:38 Respiratory Rate 20 07/05/25 13:38 Blood Pressure 176/82 H 07/05/25 13:38 Pulse Oximetry 100 07/05/25 13:38 Oxygen Delivery Room Air 07/05/25 13:38 Medical Decision Making MDM Narrative Medical decision making narrative: 69-year-old female Presenting for urinary retention. On initial evaluation patient was in no acute distress afebrile, hemodynamic stable. Differentials include but are not limited to: Obstructive uropathy, postop complication, anesthesia complication, UTI Patient had surgery earlier today. Bladder scan performed which showed approximately 1200 cc of urine in the bladder. Sutherland catheter was placed with 1100 mL return. Spoke with Dr. Fairbanks, a performance surgeon, who recommended keeping the Sutherland catheter in place for 24 hours and daughter can remove it at that time at home. UA was obtained and showed no evidence of UTI. Patient and daughter were educated on Sutherland catheter care. They were also educated on the removal of a Sutherland tomorrow. They are advised to return if she was not able to void after the Sutherland was removed. Patient and family are agreeable to this plan. Given strict return precautions. Medical Records Medical records reviewed: Yes I reviewed the external patient's medical records. Vital Signs Vital Signs: Vital Signs Temperature 97.8 F 07/05/25 13:38 Pulse Rate 78 07/05/25 13:38 Respiratory Rate 20 07/05/25 13:38 Blood Pressure 176/82 H 07/05/25 13:38 Pulse Oximetry 100 07/05/25 13:38 Oxygen Delivery Room Air 07/05/25 13:38 Temperature 97.8 F 07/05/25 13:38 Pulse Rate 78 07/05/25 13:38 Respiratory Rate 20 07/05/25 13:38 Blood Pressure 176/82 H 07/05/25 13:38 Pulse Oximetry 100 07/05/25 13:38 Oxygen Delivery Room Air 07/05/25 13:38 Lab Data Lab results reviewed: Yes I reviewed the patient's lab results. Labs: Lab Results 07/05/25 Range/Units 14:14 Urine Color Yellow (Yellow) Urine Appearance Clear (Clear) Urine pH 6.5 (5.0-9.0) Ur Specific [place] 1.008 (1.001-1.035) Urine Protein Negative (Negative) mg/dL Urine Glucose (UA) Negative (Negative) mg/dL Urine Ketones Negative (Negative) mg/dL Ur Blood (Man) 2+ H (Negative) Urine Nitrate Negative (Negative) Urine Bilirubin Negative (Negative) Urine Urobilinogen 0.2 (<2.0) mg/dL Leukocyte Esterase Rfl Negative (Negative) SHERYL/UL Urine RBC 21-50 H (0-2) /hpf Urine WBC 0-5 (0-3) /hpf Ur Squamous Epith Cells None seen (Few) /hpf Urine Bacteria None seen /hpf Urine Casts 0-2 Discharge Plan Discharge Clinical Impression: Acute urinary retention Patient Disposition: Home Condition: Stable Instructions: Antibiotic Form, Sutherland Catheter Placement and Care (ED) Additional Instructions: Keep Sutherland in place until about 2:00 p.m. tomorrow and then remove it. If he does not urinate within the following 4 hours, return to the ED for replacement of the Sutherland catheter. Follow up with her surgeon in the next week for re-evaluation. Return to the ED for any new or worsening symptoms. Patient Language: Latvian Prescriptions: No Action lansoprazole 30 mg capsule,delayed release(DR/EC) 30 mg PO DAILY multivitamin Tablet 1 tablet PO DAILY aspirin [Adult Aspirin Regimen] 81 mg tablet,delayed release (DR/EC) 81 mg PO DAILY Patient Comments: TAKES AT HS All Day Allergy (cetirizine) 10 mg capsule 10 mg PO DAILY PRN (Reason: allergy symptoms) calcium carbonate [Tums] 200 mg calcium (500 mg) tablet,chewable 200 mg PO BID cholecalciferol (vitamin D3) 10 mcg (400 unit) capsule 10 mcg PO DAILY magnesium 250 mg tablet 250 mg PO DAILY polyethylene glycol 3350 [Miralax] 17 gram/dose powder 17 g PO PRN PRN (Reason: constipation) metoprolol succinate 50 mg tablet extended release 24 hr 50 mg PO HS lorazepam 0.5 mg tablet 0.5 mg PO DAILY Patient Comments: TAKES AT HS rosuvastatin 10 mg tablet 10 mg PO DAILY Patient Comments: TAKES AT HS coenzyme Q10 [Co Q-10] 100 mg capsule 100 mg PO DAILY fluticasone propionate [Allergy Relief (fluticasone)] 50 mcg/actuation spray,suspension 1 spray intranasal DAILY Rx Instructions: administer into each nostril alendronate 70 mg tablet 70 mg PO WEEKLY Patient Comments: TAKES ON TUESDAYS montelukast 10 mg tablet 10 mg PO DAILY Follow-up/Referrals: PHYSICIAN NOT ON STAFF,NONSTAFF [Primary Care Provider]
--- OUTSIDE RECORDS SUMMARY | 2025-07-05 14:07 | XMS_ITS | Clinical Summary ---
Author Organization [facility] Address [address] [place] [address] [place] [address] Phone Care Team Providers Care Commercial Real Estate Manager Name Role Phone Chuy Veras MD Primary Care Provider [phone] Allergies Active Allergy Reactions Criticality Noted Date [...] Comments Blood Pressure 126/78 09/20/2016 1:27 PM INSECTICIDE SUPERVISOR Pulse 68 09/20/2016 1:27 PM INSECTICIDE SUPERVISOR Temperature - - Respiratory Rate 16 09/20/2016 1:27 PM INSECTICIDE SUPERVISOR Oxygen Saturation - - Inhaled Oxygen Concentration - - Weight 71.2 kg (157 lb) 09/20/2016 1:27 PM INSECTICIDE SUPERVISOR Height 160 cm (5' 3) 09/20/2016 1:27 PM INSECTICIDE SUPERVISOR Body Mass Index 27.81 09/20/2016 1:27 PM INSECTICIDE SUPERVISOR Plan of Treatment Health Maintenance Due Date [...] Procedure Name Priority Date/Time Associated Diagnosis Comments [facility] SCREENING BILATERAL DIGITAL W CAD Routine 06/15/2016 [...] made to exams dated: 06/11/2015 and 05/07/2014 [facility]. BREAST TISSUE:The tissue of both breasts is [...] exam. Electronically signed by: Jun scott/malachi:06/15/2016 18:55:51 Telecom Coordinator: Saloni Rose (R), [facility] letter sent: Normal Exam Reading location: [facility] BI-RADS: 1 Negative Procedure Note Jun Mcmullen MD - 06/16/2016 - [facility] SCREENING BILATERAL DIGITAL W CAD BILATERAL DIGITAL [...] made to exams dated: 06/11/2015 and 05/07/2014 [facility]. BREAST TISSUE:The tissue of both breasts is [...] exam. Electronically signed by: Jun scott/malachi:06/15/2016 18:55:51 Telecom Coordinator: Saloni Rose ([place]), [facility] letter sent: Normal Exam Reading location: [facility] BI-RADS: 1 Negative Zahira Hercules APRN, [facility] MAMMO ORDERABLES Fin al Result * [facility] BONE DENSITOMETRY AXIAL SKELETON (04/05/2016 1:45 PM [...] usage greater than 6 months COMPARISON(S): None YARN DRY ROOM WORKER/MODEL: FXTrip (S/N [id number]) FINDINGS: AP lumbar spine L1-L4 Total BMD is 1.06 g/kj8L-swhkn is -1.1 Left Hip Total BMD is 0.84 g/fq7P-ykyau is -1.3 Neck BMD is 0.79 g/rb1Z-sseaw is -1.8 Fracture risk assessment (FRAX): 10 [...] usage greater than 6 months COMPARISON(S): None YARN DRY ROOM WORKER/MODEL: FXTrip (S/N [id number]) FINDINGS: AP lumbar spine L1-L4 Total BMD is 1.06 g/qb4Q-ytdhq is -1.1 Left Hip Total BMD is 0.84 g/px5X-ttodb is -1.3 Neck BMD is 0.79 g/sd4Q-zezba is -1.8 Fracture risk assessment (FRAX): 10 [...] Most Recently Relevant to Health Maintenance Insurance [facility] OA Care Teams Commercial Real Estate Manager Relationship Specialty Start Date End Date Chuy Veras MD [address] [place] [id number] PCP - General Family Medicine 02/15/19
--- OUTSIDE RECORDS SUMMARY | 2025-07-05 14:07 | XMS_ITS | Clinical Summary ---
Author Organization [facility] Address [facility] [place] [address] Care Team Providers Care Lan Engineer Name Role Phone Unavailable Primary Care Provider [...]
--- OUTSIDE RECORDS SUMMARY | 2025-07-05 14:07 | XMS_ITS | Clinical Summary ---
Author Organization [facility] Address [address] [place] [address] Phone Care Team Providers Care Supervisor Sample Name Role Phone Chuy Veras MD Primary Care Provider [phone] Allergies Active Allergy Reactions Criticality Noted Date [...] series) 2032 Medical Devices Implanted Type Area Founding Partner Device Identifier Shelf Expiration Date Model / Serial / Lot Endo Clip Ii 10mm [id number] - [id number] Implanted:Qty: 1 on 07/29/2020 by Mario Alba DO at [facility] Clip N/A: Abdomen [employer] - COVID[employer]EN [id number] 06/04/2025 [id number] / / [id number] Hip Description:left total hip a rthroplasty Procedures Procedure Name Priority Date/Time Associated Diagnosis Comments COLONOSCOPY REPORT 06/12/2024 1: 59 PM CDT from Last 3 Months or Most Recently Relevant to Health Maintenance Results * COLONOSCOPY REPORT (06/12/2024 1:59 PM CDT) Narrative Procedure Note Krista Lara MD - 06/12/2024 1:59 PM CDT [facility] Endoscopy Patient Name: Jeimy Leal Procedure [...] Addenda: [address]; [place] [address] Krista Lara MD GI PROCEDURE ORDERABLES Final Result from Last 3 Months or Most Recently Relevant to Health Maintenance Insurance MEDICARE PART A AND B [facility] [employer] Advance Directives For more information, please contact: [phone] * Full Code (Latest Code Status on File) Date Activated Date Inactivated Comments 06/12/2024 12:26 PM 06/12/2024 4:44 PM * Full Code Date Activated Date Inactivated Comments 07/29/2020 8:24 AM 07/29/2020 5:50 PM * Full Code Date Activated Date Inactivated Comments 07/02/2020 9:22 AM 07/02/2020 1:38 PM Care Teams Supervisor Sample Relationship Specialty Start Date End Date Chuy Veras MD [address] [place] [phone] PCP - General Family Practice 06/04/20
--- OUTSIDE RECORDS SUMMARY | 2025-07-05 14:07 | XMS_ITS | Encounter Summary ---
Author Organization [facility] Address [address] [place] [address] Care Team Providers Care Data Processing Control Clerk Name Role Phone Chuy Veras MD Primary Care Provider [phone] Encounter Details Date Type Department Care Team [...] on filedocumented in this encounter Care Teams Data Processing Control Clerk Relationship Specialty Start Date End Date Chuy Veras MD [address] [place] [phone] PCP - General Family Practice 06/04/20 documented as of this encounter
--- OUTSIDE RECORDS SUMMARY | 2025-07-05 14:07 | XMS_ITS | Encounter Summary ---
Author Organization [facility] Address [address] [place] [address] Care Team Providers Care Salesperson Pets [employer] Pet Supplies Name Role Phone Chuy Veras MD Primary Care Provider [phone] Encounter Details Date Type Department Care Team [...] on filedocumented in this encounter Care Teams Salesperson Pets [employer] Pet Supp[employer] Relationship Specialty Start Date End Date Chuy Veras MD [address] [place] [phone] PCP - General Family Practice 06/04/20 documented as of this encounter
--- OUTSIDE RECORDS SUMMARY | 2025-07-05 14:07 | XMS_ITS | Clinical Summary ---
[facility] Address [address] [place] [address] Care Team Providers Care Outpatient Surgery Rn Name Role Phone Chuy Veras MD Primary Care Provider [phone] Allergies Active Allergy Reactions Criticality Noted Date [...] 09/07/2023 Assessment & Plan (10/07/2023 1:27 PM THREAD CLIPPER): May blow nose gently Nasal saline spray (Simply saline, Little Remedies, [place], [place]) 2 second sprays or 2 squeezes into [...] needed Assessment & Plan (09/29/2023 11:05 AM THREAD CLIPPER): Avoid nose blowing Sinus Rinse twice daily Follow up in one week Finish oral antibiotics Assessment & Plan (09/07/2023 2:17 PM THREAD CLIPPER): Endoscopic bilateral maxillary antrostomy with tissue removal [...] 09/07/2023 Assessment & Plan (09/29/2023 11:05 AM THREAD CLIPPER): Avoid nose blowing Sinus Rinse twice daily Follow up in one week Finish oral antibiotics Assessment & Plan (09/07/2023 5:34 PM THREAD CLIPPER): Endoscopic bilateral maxillary antrostomy with tissue removal [...] 023 Assessment & Plan (08/12/2023 9:49 AM THREAD CLIPPER): Nasal saline spray (Simply saline, Little Remedies, [place], [place]) 2 second sprays or 2 squeezes into [...] Description 06/04/2025 11:00 AM CDT Office Visit [facility] [address] [place], [place] [address], [place] [address] Nilton Guerra MD Left hip pain (Primary Dx); Hip flexor tendinitis, left 06/04/2025 7:48 AM CDT - 06/04/2025 11:59 PM CDT Hospital Encounter [facility] [address] [facility] [address] [place] [address] Discharge Disposition: Discharge to home or self care 04/16/2025 Telephone [facility] [address] [place] [address] [address] [place] [address] Nilton Guerra MD 2nd Opinion; Hip Pain [...] on file Legal Sex Female 1:02 AM THREAD CLIPPER Gender Identity Female 07/21/2020 3:03 PM THREAD CLIPPER Sexual Orientation Straight 07/21/2020 3: 03 PM THREAD CLIPPER Obstetrics History Last Filed Vital Signs Vital Sign Reading Time Taken Comments Blood Pressure 111/76 06/04/2025 11:03 AM CDT Pulse 71 06/04/2025 11:03 AM CDT Temperature 36.6 C (97.9 F) 08/09/2024 7:24 AM THREAD CLIPPER Respiratory Rate 18 08/09/2024 8:26 AM THREAD CLIPPER Oxygen Saturation 99% 08/09/2024 7:40 AM THREAD CLIPPER Inhaled Oxygen Concentration - - Weight 76.6 [...] 07/13/20 24 Medical Devices Implanted Type Area Stores Laborer Device Identifier Shelf Expiration Date Model / [...] Final Result from Last 3 Months Insurance [employer] [facility] AETNA MEDICARE MEDICARE Care Teams Outpatient Surgery Rn Relationship Specialty Start Date End Date Chuy Veras MD PCP - General Family Medicine 03/13/18
[2025-07-05 14:24] LABS: Add Urine Microscopic? YES; Appearance Urine Clear (Clear); Glucose Urine UA Negative (Negative); Leukocyte Esterase Ur Negative LEU/UL (Negative); Nitrate Urine Negative (Negative); Non Pathogenic Casts 0-2; Specific Grav Ur 1.008 (1.001-1.035)
== END 2025-07-05 15:00 | disposition home or self-care (01) ==
PROVIDERS: Emergency Provider Student in an Organized Health Care Education/Training Program
DX: N99.89 Other postprocedural complications and disorders of genitourinary system (principal); R33.9 Retention of urine, unspecified; N36.42 Intrinsic sphincter deficiency (ISD); I10 Essential (primary) hypertension; I73.9 Peripheral vascular disease, unspecified; E78.00 Pure hypercholesterolemia, unspecified; K21.9 Gastro-esophageal reflux disease without esophagitis; Z96.649 Presence of unspecified artificial hip joint; Z87.891 Personal history of nicotine dependence; Y83.8 Other surgical procedures as the cause of abnormal reaction of the patient, or of later complication, without mention of misadventure at the time of the procedure
CPT/HCPCS: 51702; 81001; 99283